=== PATIENT | male | born 1970 | race Caucasian/White ===

== ENCOUNTER 2018-10-20 12:22 | Emergency (ER) | payer MEDICARE, OTHER ==
[~2018-10-20] VITALS: Ht 182.9 cm; Wt 115.9 kg
[2018-10-20] MEDS ORDERED: ceFAZolin 1GM/D5W- ADD-VANTAGE 50 ML IV ONE (13:05)
[2018-10-20] MEDS ORDERED: LIDOcaine 1% w/epiNEPHrine 1:200,000 30ml vial IM ONE (13:05)
[2018-10-20] MEDS ORDERED: TETanus/Pertussis (Acell)/Diphther VAC/PF (Tdap-Adult) 0.5ml syringe IM ONE (13:05)
[2018-10-20] MEDS ORDERED: sulfmethoxaz/trimethoprim inj 20 ML in dextrose 5%-water 230 ML IV ONE (13:15)
[2018-10-20] MEDS ORDERED: morphine 4 MG/ML inj SYRINge IV ONE (14:05)
[2018-10-20] MEDS ORDERED: CEPH-572 PO (14:11)
[2018-10-20] MEDS ORDERED: SULF1TAB49 PO (14:11)
[2018-10-20] MEDS ORDERED: normal saline 1000ml 1,000 ML IV ONE (14:15)
[2018-10-20] MEDS ORDERED: acetaminophen 325mg tablet PO ONE (14:15)
[2018-10-20 16:45] VITALS: BP 138/76
== END 2018-10-20 16:46 | disposition home or self-care (01) ==
LOC: ER 12:23
DX: L02.11 Cutaneous abscess of neck (principal); I10 Essential (primary) hypertension; G89.29 Other chronic pain; F12.90 Cannabis use, unspecified, uncomplicated; F15.90 Other stimulant use, unspecified, uncomplicated; Z98.890 Other specified postprocedural states; Z91.030 Bee allergy status
CPT/HCPCS: 10060; 90471; 90715; 96365; 96368; 96375; 99283; J0690; J2270; J3490; J7030; J7060

== ENCOUNTER 2018-10-23 17:40 | Emergency (ER) | payer MEDICARE, OTHER ==
[~2018-10-23 17:40] MED LIST: CEPH-572 PO; SULF1TAB49 PO
== END 2018-10-23 18:28 | disposition left against medical advice (07) ==
LOC: ER 17:41
DX: Z48.01 Encounter for change or removal of surgical wound dressing (principal); Z53.21 Procedure and treatment not carried out due to patient leaving prior to being seen by health care provider

== ENCOUNTER 2019-11-12 05:27 | Emergency (ER) | payer MEDICARE, OTHER ==
[~2019-11-12] VITALS: Ht 182.9 cm; Wt 118.0 kg
[2019-11-12] MEDS ORDERED: proparacaine 0.5% ophthalmic drops 15ml EACHEYE ONE (06:00)
[2019-11-12] MEDS ORDERED: VIG0.5OS EACHEYE (06:10)
[2019-11-12 06:17] VITALS: BP 165/92
== END 2019-11-12 06:19 | disposition home or self-care (01) ==
LOC: ER 05:28
DX: H10.33 Unspecified acute conjunctivitis, bilateral (principal); G89.29 Other chronic pain; F12.90 Cannabis use, unspecified, uncomplicated; F15.90 Other stimulant use, unspecified, uncomplicated; Z98.890 Other specified postprocedural states; Z79.899 Other long term (current) drug therapy; Z91.030 Bee allergy status
CPT/HCPCS: 99283